=== PATIENT | male | born 1945 | race Caucasian/White ===

== ENCOUNTER 2017-11-01 14:57 | Emergency (ER) | payer OTHER, MEDICAID ==
[~2017-11-01] VITALS: Ht 162.6 cm; Wt 64.0 kg
[2017-11-01] MEDS ORDERED: SODIUM CHLORIDE 0.9% 1,000 ML IV ONE (15:17)
[2017-11-01] MEDS ORDERED: TETANUS, DIPHTHERIA, PERTUSSIS VAC/PF 0.5ML (>7YR OLD) IM ONE (15:30)
[2017-11-01] MEDS ORDERED: SILVER SULFADIAZINE 1% CREAM 25GM TOP ONE (15:30)
[2017-11-01] MEDS ORDERED: CEPHALEXIN 500MG CAPSULE PO ONE (15:30)
[2017-11-01 16:10] LABS: BASOPHILS % 0.4 % (0.0-2.0); CHLORIDE 94 mEq/L (98-107); EOSINOPHILS % 1.1 % (0.0-5.0); HEMATOCRIT. 33.8 % (42.0-52.0); HEMOGLOBIN. 11.3 g/dL (14.0-18.0); LYMPHOCYTES % 25.7 % (20.0-50.0); MEAN CORPUSCULAR HEMOGLOBIN 29.1 pg (28.0-32.0); MEAN PLATELET VOLUME 7.8 fl (7.4-10.4); MONOCYTES % 8.8 % (2.0-8.0); PLATELET 127 x1000/uL (130-400); RED BLOOD CELL COUNT 3.89 mill/uL (4.7-6.1); RED CELL DISTRIBUTION WIDTH 17.1 % (11.6-14.6)
[2017-11-01 16:12] LABS: INR 1.3; PROTHROMBIN TIME 12.6 sec (9.1-11.1)
[2017-11-01 20:22] VITALS: BP 141/76
== END 2017-11-01 20:28 | disposition home or self-care (01) ==
LOC: ER 14:57
DX: S40.811A Abrasion of right upper arm, initial encounter (principal); I11.9 Hypertensive heart disease without heart failure; W01.0XXA Fall on same level from slipping, tripping and stumbling without subsequent striking against object, initial encounter; Y93.89 Activity, other specified; Y92.018 Other place in single-family (private) house as the place of occurrence of the external cause
CPT/HCPCS: 36415; 70450; 71045; 80053; 85025; 85610; 90471; 90715; 93005; 96360; 96361; 99285; J7030